=== PATIENT | female | born 1955 | race Caucasian/White ===

== ENCOUNTER 2020-07-11 17:11 | Observation (INO) | payer BC ==
[2020-07-11] MEDS ORDERED: OXYCODONE-ACETAMINOPHEN 5-325 MG TABLET PO ONE (17:16)
--- NOTE | 2020-07-11 17:26 | ER Document Report ---
ED Medical Screen (RME) - General Chief Complaint: Fall Stated Complaint: FALL RIGHT WRIST INJURY Time Seen by Provider: 07/11/20 17:16 Mode of Arrival: Wheelchair Information source: Patient Notes: 64-year-old female presented to ED for right wrist pain and deformity. She states she fell off the second rung of a ladder about 4:00. She had to call her friend who came together and brought her to the hospital from [place]. She does have obvious deformity to the right wrist. When I first brought her into the room she was very lightheaded and felt like she was going to pass out. She states she does have a history of high blood pressure, high cholesterol, and asthma. I have ordered her a right wrist x-ray and Percocet. She has received the Percocet will go for the x-ray. I have a temporarily splinted the arm until she can get her x-rays and get in a room. I have greeted and performed a rapid initial assessment of this patient. A comprehensive ED assessment and evaluation of the patient, analysis of test results and completion of medical decision making process will be conducted by an additional ED providers.
--- NOTE | 2020-07-11 17:43 | ER Document Report ---
ED General - General Chief Complaint: Fall Stated Complaint: FALL RIGHT WRIST INJURY Time Seen by Provider: 07/11/20 17:16 Mode of Arrival: Wheelchair Information source: Patient Notes: 07/11/20 17:16 - ED [facility] [id number] : 1955 Patient Age: 64 pt arrives to Er today for c/o right wrist pain and deformity after falling off a step ladder from 2-3 steps up aprpoximately 4-5 feet. pt fell onto right wrist. pt has positive deformity. pt states she missed a step. pt is alert but slow to respond. respirations even and unlabored. Initialized on 07/11/20 17:16 - END OF NOTE ED Medical Screen (Jocelyn mendiola) - General Chief Complaint: Fall Stated Complaint: FALL RIGHT WRIST INJURY Time Seen by Provider: 07/11/20 17:16 Mode of Arrival: Wheelchair Information source: Patient Notes: 64-year-old female presented to ED for right wrist pain and deformity. She states she fell off the second rung of a ladder about 4:00. She had to call her friend who came together and brought her to the hospital from [place]. She does have obvious deformity to the right wrist. When I first brought her into the room she was very lightheaded and felt like she was going to pass out. She states she does have a history of high blood pressure, high cholesterol, and asthma. I have ordered her a right wrist x-ray and Percocet. She has received the Percocet will go for the x-ray. I have a temporarily splinted the arm until she can get her x-rays and get in a room. my notes 64-year-old female arrives by POV after she was on a stepladder around 1600 today. She tripped and fell to the floor. She is right-handed. She has obvious deformity to her right wrist. X-ray reveals a fractured radius with displacement and a open fracture. Dr. Herbert Hatfield happened to be in the ER at the time I was calling the glue mill operator to locate him. He evaluated the patient by 1740. - Related Data Allergies/Adverse Reactions: erythromycin base Allergy (Verified 07/11/20 17:28) Penicillins Allergy (Verified 07/11/20 17:28) theophylline Allergy (Verified 07/11/20 17:28) emtex Allergy (Uncoded 07/11/20 17:28) Past Medical History - General Information source: Patient - Social History Smoking Status: Never Smoker Chew tobacco use (# tins/day): No Frequency of alcohol use: None Drug Abuse: None Physical Exam - Vital signs Vitals: Temp 98.7 F 07/11/20 17:16 Interpretation: Normal - HEENT Head: Normocephalic, Atraumatic Eyes: Normal Pupils: PERRL Pharynx: Normal Neck: Normal - Respiratory Respiratory status: No respiratory distress Chest status: Nontender Breath sounds: Normal Chest palpation: Normal - Cardiovascular Rhythm: Regular Heart sounds: Normal auscultation Murmur: No Friction rub: No Smiley's crunch: No - Abdominal Inspection: Normal Distension: No distension Bowel sounds: Normal Tenderness: Nontender Organomegaly: No organomegaly - Rectal Hemorrhoids: Other - deferred - Genitourinary Biman[place] exam: Other - deferred - Back Back: Normal - Extremities General upper extremity: Other - Deformity to right wrist with open skin dorsally. Patient has full mobility of her fingers and has good sensation to fingers. Pain to the snuffbox area and ulnar area. General lower extremity: Normal inspection - Neurological Neuro grossly intact: Yes Cognition: Normal Orientation: AAOx4 [place] Coma Scale Eye Opening: Spontaneous Ana Coma Scale Verbal: Oriented Ana Coma Scale Motor: Obeys Commands Ana Coma Scale Total: 15 Speech: Normal Motor strength normal: LUE, RUE, LLE, RLE Sensory: Normal - Psychological Associated symptoms: Anxious - Skin Skin Temperature: Warm Skin Moisture: Dry Course - Vital Signs Vital signs: Temp Pulse Resp BP Pulse Ox 98.3 F 72 18 115/65 97 07/11/20 17:20 07/11/20 17:20 07/11/20 17:20 07/11/20 17:20 07/11/20 17:20 - Laboratory Result Diagrams: 07/11/20 17:42 07/11/20 17:42 - Diagnostic Test Radiology reviewed: Reports reviewed - EKG Interpretation by Me EKG shows normal: Sinus rhythm Rate: Normal Rhythm: NSR - [address] elevation no ST depression no T wave elevation no T wave depression Procedures - Joint Reduction/Fracture Care Right Wrist Time completed: 18:33 Consent obtained: Yes Conscious sedation: Yes Pre-procedure NV exam: Yes Fracture: Open Post-procedure NV exam: Yes Post-reduction x-ray: Joint reduced Reduction attempts: 1 Complications: No Notes: 07/11/20 18:33 This reduction was done by Dr. Herbert Hatfield and I was in room 4 sedation procedure. Patient received propofol 100 IV and ketamine 50 IV. Patient was asleep for procedure. Her saturations were between 96-99. Breathing was respirations between 16-15 Discharge - Discharge Clinical Impression: Wrist fracture, right Qualifiers: Encounter type: initial encounter Fracture type: open Qualified Code(s): S62.101B - Fracture of unspecified carpal bone, right wrist, initial encounter for open fracture Wrist fracture, open Qualifiers: Encounter type: initial encounter Laterality: right Qualified Code(s): S62.101B - Fracture of unspecified carpal bone, right wrist, initial encounter for open fracture Condition: Good Disposition: ADMITTED INPATIENT
[2020-07-11] MEDS ORDERED: ONDANSETRON HCL INJ/PF 4 MG/2 ML SDV IV ONE (17:46)
[2020-07-11] MEDS ORDERED: MORPHINE SULFATE 10 MG/ML INJ IV ONE ×2 (17:46→19:32)
--- NOTE | 2020-07-11 18:01 | RADIOLOGY REPORT (SQ) ---
EXAM DESCRIPTION: WRIST RIGHT 2 VIEWS IMAGES COMPLETED DATE/TIME: 07/11/2020 5:39 pm REASON FOR STUDY: Fall injury deformity COMPARISON: None. NUMBER OF VIEWS: Three views. TECHNIQUE: AP, lateral, and oblique radiographic images acquired of the right wrist. LIMITATIONS: None. FINDINGS: MINERALIZATION: Normal. BONES: Transverse slightly comminuted fracture of the distal radius with complete dorsal displacement of the distal most fragment SOFT TISSUES: No soft tissue swelling. No foreign body. OTHER: No other significant finding. IMPRESSION: Distal radius fracture. TECHNICAL DOCUMENTATION: JOB ID: [id number] [email or web address]- All Rights Reserved Reading location - IP/workstation name: [email or web address]
[2020-07-11] MEDS ORDERED: PROPOFOL INJ 200 MG/20 ML VIAL IV ONE (18:07)
[2020-07-11] MEDS ORDERED: KETAMINE HCL INJ 500 MG/10 ML VIAL IV ONE (18:08)
[2020-07-11 18:09] LABS: ABSOLUTE BASOPHILS # (AUTO) 0.1 10^3/uL (0.0-0.2); ABSOLUTE EOSINOPHILS # (AUTO) 0.3 10^3/uL (0.0-0.6); ABSOLUTE LYMPHOCYTES (AUTO) 3.4 10^3/uL (0.5-4.7); ABSOLUTE NEUT (AUTO) 7.3 10^3/uL (1.7-8.2); BASOPHILS % (AUTO) 1.1 % (0-2); EOSINOPHILS % (AUTO) 2.7 % (0-6); HEMATOCRIT 44.7 % (36.0-47.0); HEMOGLOBIN 15.1 g/dL (12.0-15.5); LYMPHOCYTES % (AUTO) 27.9 % (13-45); MEAN CORPUSCULAR HEMOGLOBIN 33.3 pg (27.0-33.4); MEAN CORPUSCULAR HGB CONC 33.9 g/dL (32.0-36.0); MEAN CORPUSCULAR VOLUME 98 fl (80-97); MONOCYTES % (AUTO) 8.1 % (3-13); PLATELET COUNT 321 10^3/uL (150-450); RED BLOOD COUNT 4.54 10^6/uL (3.72-5.28); RED CELL DISTRIBUTION WIDTH 13.9 % (11.5-14.0); SEGMENTED NEUTROPHILS % (AUTO) 60.2 % (42-78); TOTAL CELLS COUNTED % (AUTO) 100 %; WHITE BLOOD COUNT 12.1 10^3/uL (4.0-10.5)
[2020-07-11] MEDS ORDERED: CEFAZOLIN 1 GM/D5W RTU 1 GM/50 ML RTUPB IV ONE (18:09)
[2020-07-11 18:18] LABS: ALBUMIN 4.7 g/dL (3.5-5.0); ALKALINE PHOSPHATASE 82 U/L (38-126); ANION GAP 7 (5-19); ASPARTATE AMINO TRANSFERASE 40 U/L (14-36); BILIRUBIN,TOTAL 0.4 mg/dL (0.2-1.3); BLOOD UREA NITROGEN 28 mg/dL (7-20); CALCIUM 9.9 mg/dL (8.4-10.2); CARBON DIOXIDE 28 mmol/L (22-30); CHLORIDE 99 mmol/L (98-107); GLUCOSE 111 mg/dL (75-110); POTASSIUM 4.6 mmol/L (3.6-5.0); TOTAL PROTEIN 7.5 g/dL (6.3-8.2)
--- NOTE | 2020-07-11 18:25 | RADIOLOGY REPORT (SQ) ---
EXAM DESCRIPTION: CHEST SINGLE VIEW IMAGES COMPLETED DATE/TIME: 07/11/2020 6:08 pm REASON FOR STUDY: fx wrist COMPARISON: None. EXAM PARAMETERS: NUMBER OF VIEWS: One view. TECHNIQUE: Single frontal radiographic view of the chest acquired. RADIATION DOSE: NA LIMITATIONS: None. FINDINGS: LUNGS AND PLEURA: No opacities, masses or pneumothorax. No pleural effusion. MEDIASTINUM AND HILAR STRUCTURES: No masses. Contour normal. HEART AND VASCULAR STRUCTURES: Heart normal in size. Normal vasculature. BONES: No acute findings. HARDWARE: None in the chest. OTHER: No other significant finding. IMPRESSION: NO ACUTE RADIOGRAPHIC FINDING IN THE CHEST. TECHNICAL DOCUMENTATION: JOB ID: [id number] 2010 [email or web address]- All Rights Reserved Reading location - IP/workstation name: [email or web address]
--- NOTE | 2020-07-11 18:31 | PDOC CONSULTATION ---
Consultation Consult Date: 07/11/20 Attending physician:: SIS CHAVEZ JR Provider Consulted: CHARO BUENO Consult reason:: Medical clearance History of Present Illness Patient complains of: Fall with right wrist pain History of Present Illness: PHOEBE JENKINS is a 64 year old female with history of hypertension, hyperlipidemia, asthma came to the emergency room with complaints of fall from a stepladder. In the emergency room found to have a right wrist fracture specifically fracture of the distal radius with the displacement and open fracture. Dr. Chavez is planning to take her to the OR tomorrow morning requested for medical clearance. EKG within normal limits chemistry is normal CBC is pending at the time of my examination. Past Medical History Cardiac Medical History: Reports: Hyperlipidema, Hypertension Pulmonary Medical History: Reports: Asthma EENT Medical History: Reports: None Neurological Medical History: Reports: None Renal/ Medical History: Reports: None Malignancy Medical History: Reports: None GI Medical History: Reports: None Musculoskeltal Medical History: Reports: None Psychiatric Medical History: Reports: None Traumatic Medical History: Reports: None Hematology: Reports: None Infectious Medical History: Reports: None Past Surgical History Past Surgical History: Reports: Tonsillectomy Social History Information Source: Patient Lives with: Friend Smoking Status: Never Smoker Electronic Cigarette use?: No Hx Recreational Drug Use: No Hx Prescription Drug Abuse: No - Advance Directive Resuscitation Status: Full Code Family History Parental Family History Reviewed: Yes Children Family History Reviewed: Yes Sibling(s) Family History Reviewed.: Yes Medication/Allergy Allergies/Adverse Reactions: erythromycin base Allergy (Verified 07/11/20 17:28) Penicillins Allergy (Verified 07/11/20 17:28) theophylline Allergy (Verified 07/11/20 17:28) emtex Allergy (Uncoded 07/11/20 17:28) Review of Systems Constitutional: ABSENT: fatigue, fever(s), headache(s), night sweats, weakness Eyes: ABSENT: visual disturbances Ears: ABSENT: hearing changes Nose, Mouth, and Throat: ABSENT: sore throat Cardiovascular: ABSENT: orthropnea, palpitations Respiratory: ABSENT: dyspnea, hemoptysis Gastrointestinal: ABSENT: coffee ground emesis, diarrhea, dysphagia, heartburn Genitourinary: ABSENT: dysuria, hematuria Musculoskeletal: PRESENT: deformity, other - Fall with right distal fracture with displacement and it is open fracture. Neurological: ABSENT: abnormal speech, focal weakness, frequent falls Psychiatric: ABSENT: hallucinations, homidical ideation, suicidal ideation Endocrine: ABSENT: heat intolerance, menstrual abnormalities, polydipsia Hematologic/Lymphatic: ABSENT: easy bruising, lymphadenopathy Physical Exam Vital Signs: Temp Pulse Resp BP Pulse Ox 98.3 F 72 18 115/65 97 07/11/20 17:20 07/11/20 17:20 07/11/20 17:20 07/11/20 17:20 07/11/20 17:20 Intake & Output 07/10/20 07/11/20 07/12/20 06:59 06:59 06:59 Weight 98.883 kg General appearance: PRESENT: cooperative, other - In moderate distress Head exam: PRESENT: atraumatic Eye exam: PRESENT: PERRLA Ear exam: PRESENT: normal external ear exam Mouth exam: PRESENT: neck supple Teeth exam: PRESENT: poor dentation Neck exam: ABSENT: carotid bruit, JVD, lymphadenopathy, thyromegaly Respiratory exam: PRESENT: decreased breath sounds Cardiovascular exam: PRESENT: RRR. ABSENT: diastolic murmur, rubs, systolic murmur Pulses: PRESENT: normal dorsalis pedis pul GI/Abdominal exam: PRESENT: normal bowel sounds, soft. ABSENT: distended, guarding, mass, organolmegaly, rebound, tenderness Rectal exam: PRESENT: deferred Extremities exam: PRESENT: other - Examination of the right arm shows right wrist fracture which is open fracture. Neurological exam: PRESENT: alert, awake, oriented to person, oriented to place, oriented to time, oriented to situation, CN II-XII grossly intact. ABSENT: motor sensory deficit Psychiatric exam: PRESENT: anxious Results Laboratory Results: 07/11/20 17:42 07/11/20 17:42 Sodium 133.6 L Potassium 4.6 Chloride 99 Carbon Dioxide 28 Anion Gap 7 BUN 28 H Creatinine 0.96 Est GFR ( Amer) > 60 Glucose 111 H Calcium 9.9 Total Bilirubin 0.4 AST 40 H Alkaline Phosphatase 82 Total Protein 7.5 Albumin 4.7 Impressions: Wrist X-Ray 07/11/20 17:17 IMPRESSION: Distal radius fracture. Assessment and Plan - Diagnosis (1) Wrist fracture, right Qualifiers: Encounter type: initial encounter Fracture type: open Qualified Code(s): S62.101B - Fracture of unspecified carpal bone, right wrist, initial encounter for open fracture Is this a current diagnosis for this admission?: Yes Plan: 07/11/2020-patient is going to be admitted by Dr. Chavez to the medical floor with distal right foot fracture is planning to do the open reduction today possible surgery tomorrow. CBC is pending and chemistry within normal limits EKG within normal limits. Medically cleared with low risk. (2) HTN (hypertension) Is this a current diagnosis for this admission?: No Plan: 07/11/2020-patient has history of essential hypertension to start the patient on IV hydralazine 10 mg every 6 as needed for systolic blood pressure more than 170. Patient will be kept n.p.o. DVT prophylaxis with SCDs will be provided. No pharmacal prophylaxis because of the possible surgery tomorrow. (3) Obesity (BMI 30-39.9) Is this a current diagnosis for this admission?: No Plan: 07/11/2020-patient BMI is 36.3 diet exercise weight loss lifestyle modifications discussed with the patient. - Time Anticipated Discharge Disposition: Home, Self Care Anticipated Discharge Timeframe: within 72 hours
[2020-07-11] MEDS ORDERED: HYDRALAZINE HCL INJ/PF 20 MG/1 ML SDV IV PRN (18:32)
[2020-07-11] MEDS ORDERED: ONDANSETRON HCL INJ/PF 4 MG/2 ML SDV IV PRN (18:33)
[2020-07-11 18:54] LABS: INTERNATIONAL RATION (INR) 0.93; PROTHROMBIN TIME 12.6 SEC (11.4-15.4)
[2020-07-11] MEDS ORDERED: ACETAMINOPHEN 325 MG TABLET PO PRN (19:18)
--- NOTE | 2020-07-11 19:39 | Progress Note ---
Provider Note Provider Note: Procedure note: Discussed risk and benefits of multiple treatment options. Informed procedural consent was obtained for closed reduction under conscious sedation. The wound was cleaned and a sterile dressing was placed. After adequate sedation was provided, a reduction maneuver was performed and the patient was placed in a sugartong splint. She tolerated the procedure well. She maintained NVI afterward.
[2020-07-11] MEDS ORDERED: CEFAZOLIN 2 GM/D5W RTU 2 GM/50 ML RTUPB IV SCH (22:00)
[2020-07-11] MEDS: MORPHINE SULFATE 10 MG/ML INJ IV PRN (22:05)
[2020-07-11] MEDS: CEFAZOLIN SODIUM 2 GM in DEXTROSE 5%-WATER 100 ML IV SCH (22:37)
[2020-07-12] MEDS: MORPHINE SULFATE 10 MG/ML INJ IV PRN (02:05)
[2020-07-12] MEDS: CEFAZOLIN SODIUM 2 GM in DEXTROSE 5%-WATER 100 ML IV SCH ×2 (05:45→13:01)
[2020-07-12 07:15] LABS: ABSOLUTE BASOPHILS # (AUTO) 0.1 10^3/uL (0.0-0.2); ABSOLUTE EOSINOPHILS # (AUTO) 0.1 10^3/uL (0.0-0.6); ABSOLUTE MONOCYTES (AUTO) 1.2 10^3/uL (0.1-1.4); ABSOLUTE NEUT (AUTO) 7.3 10^3/uL (1.7-8.2); BASOPHILS % (AUTO) 0.9 % (0-2); EOSINOPHILS % (AUTO) 1.1 % (0-6); HEMATOCRIT 41.4 % (36.0-47.0); HEMOGLOBIN 14.1 g/dL (12.0-15.5); LYMPHOCYTES % (AUTO) 25.6 % (13-45); MEAN CORPUSCULAR HEMOGLOBIN 33.3 pg (27.0-33.4); MEAN CORPUSCULAR VOLUME 98 fl (80-97); MONOCYTES % (AUTO) 10.4 % (3-13); PLATELET COUNT 284 10^3/uL (150-450); RED BLOOD COUNT 4.23 10^6/uL (3.72-5.28); RED CELL DISTRIBUTION WIDTH 13.4 % (11.5-14.0); TOTAL CELLS COUNTED % (AUTO) 100 %; WHITE BLOOD COUNT 11.7 10^3/uL (4.0-10.5)
[2020-07-12 07:35] LABS: ALBUMIN 4.2 g/dL (3.5-5.0); ALKALINE PHOSPHATASE 70 U/L (38-126); ANION GAP 5 (5-19); ASPARTATE AMINO TRANSFERASE 40 U/L (14-36); BILIRUBIN,TOTAL 0.4 mg/dL (0.2-1.3); BLOOD UREA NITROGEN 20 mg/dL (7-20); CALCIUM 9.4 mg/dL (8.4-10.2); CARBON DIOXIDE 27 mmol/L (22-30); CHLORIDE 103 mmol/L (98-107); GLUCOSE 102 mg/dL (75-110); POTASSIUM 4.4 mmol/L (3.6-5.0); TOTAL PROTEIN 6.8 g/dL (6.3-8.2)
[2020-07-12] MEDS ORDERED: ALBUTEROL SULFATE 0.083% NEB 2.5 MG/3 ML AMPUL NEB ONE (08:15)
[2020-07-12] MEDS ORDERED: FENTANYL CITRATE INJ/PF 100 MCG/2 ML AMPUL ONE (08:17)
[2020-07-12] MEDS ORDERED: LIDOCAINE 2% INJ-PF (100 MG/5 ML) SYRINGE ONE (08:17)
[2020-07-12] MEDS ORDERED: ONDANSETRON HCL INJ/PF 4 MG/2 ML SDV ONE (08:18)
[2020-07-12] MEDS ORDERED: PROPOFOL INJ 200 MG/20 ML VIAL IV ONE (08:18)
[2020-07-12] MEDS ORDERED: DEXAMETHASONE SOD PHOSPHATE INJ 4 MG/1 ML VIAL ONE (08:18)
[2020-07-12] MEDS ORDERED: MIDAZOLAM 2 MG/2 ML INJ ONE (08:18)
[2020-07-12] MEDS ORDERED: HYDROMORPHONE HCL INJ/PF 2 MG/ML AMPULE ONE (08:18)
--- NOTE | 2020-07-12 08:20 | EKG REPORT ---
SEVERITY:- BORDERLINE ECG - SINUS RHYTHM BORDERLINE T WAVE ABNORMALITIES : Confirmed by: Cedrcik Rizvi MD 12-Jul-2020 08:18:59
[2020-07-12] MEDS ORDERED: BUPIVACAINE HCL 0.25 % INJ/PF (2.5 MG/1 ML) 30 ML VIAL ONE (09:00)
[2020-07-12] MEDS ORDERED: OXYCODONE-ACETAMINOPHEN 5-325 MG TABLET PO PRN ×2 (09:01)
[2020-07-12] MEDS ORDERED: FENTANYL CITRATE INJ/PF 100 MCG/2 ML AMPUL IV PRN ×3 (09:01)
[2020-07-12] MEDS ORDERED: MEPERIDINE HCL/PF INJ 25 MG/1 ML DISP.SYRIN IV PRN (09:01)
[2020-07-12] MEDS ORDERED: MORPHINE SULFATE 10 MG/ML INJ IV PRN (09:01)
[2020-07-12] MEDS ORDERED: PROMETHAZINE HCL INJ 25 MG/1 ML VIAL IV PRN ×2 (09:01)
[2020-07-12] MEDS ORDERED: DIPHENHYDRAMINE HCL 50 MG/ML VIAL IV PRN (09:01)
[2020-07-12] MEDS ORDERED: LIDOCAINE 1% INJ-PF (10 MG/ML) 30 ML SDV ONE (09:03)
[2020-07-12] MEDS ORDERED: LABETALOL HCL INJ 20 MG/4 ML DISP.SYRIN IV ONE (10:00)
[2020-07-12] MEDS ORDERED: DOCUSATE SODIUM 100 MG CAPSULE PO SCH (10:00)
[2020-07-12] MEDS ORDERED: PANTOPRAZOLE SODIUM 40 MG VIAL IV SCH (10:00)
--- NOTE | 2020-07-12 10:20 | PDOC PROGRESS REPORT ---
Subjective Progress Note for:: 07/12/20 Subjective:: Patient seen and evaluated this morning. No no events overnight. Patient reports no symptomatic changes, has some numbness in the ulnar digits as was present yesterday however still grossly neurovascular intact. Reason For Visit: OPEN DISTAL RADIUS FRACTURE,RIGHT Physical Exam Vital Signs: Temp Pulse Resp BP Pulse Ox 98.0 F 86 17 105/86 H 96 07/12/20 07:48 07/12/20 07:48 07/12/20 07:48 07/12/20 07:48 07/12/20 07:48 Intake & Output 07/11/20 07/12/20 07/13/20 06:59 06:59 06:59 Intake Total 390 100 Balance 390 100 Weight 100.9 kg Physical Exam: No acute distress, alert and orient x3 Right upper extremity sensation grossly intact to radial median and ulnar nerve. upper extremity motor function grossly intact to radian median ulnar nerve AIN and PIN Pulses 2+, capillary refill less than 2 seconds Right upper extremity currently placed in a sugar tong splint, clean dry and intact -Some slight paresthesia to ulnar nerve distribution upon palpation Results Laboratory Results: 07/12/20 07:00 07/12/20 07:00 07/11/20 07/11/20 07/12/20 17:42 17:42 07:00 WBC 12.1 H RBC 4.54 Hgb 15.1 Hct 44.7 MCV 98 H MCH 33.3 MCHC 33.9 RDW 13.9 Plt Count 321 Seg Neutrophils % 60.2 Sodium 133.6 L 134.9 L Potassium 4.6 4.4 Chloride 99 103 Carbon Dioxide 28 27 Anion Gap 7 5 BUN 28 H 20 Creatinine 0.96 0.90 Est GFR ( Amer) > 60 > 60 Glucose 111 H 102 Calcium 9.9 9.4 Magnesium 2.3 Total Bilirubin 0.4 0.4 AST 40 H 40 H Alkaline Phosphatase 82 70 Total Protein 7.5 6.8 Albumin 4.7 4.2 07/12/20 07:00 WBC 11.7 H RBC 4.23 Hgb 14.1 Hct 41.4 MCV 98 H MCH 33.3 MCHC 34.0 RDW 13.4 Plt Count 284 Seg Neutrophils % 62.0 Sodium Potassium Chloride Carbon Dioxide Anion Gap BUN Creatinine Est GFR ( Amer) Glucose Calcium Magnesium Total Bilirubin AST Alkaline Phosphatase Total Protein Albumin Impressions: Chest X-Ray 07/11/20 17:48 IMPRESSION: NO ACUTE RADIOGRAPHIC FINDING IN THE CHEST. Assessment & Plan - Diagnosis (1) Open fracture of right distal radius Is this a current diagnosis for this admission?: Yes Plan: -Patient was temporized in the ER yesterday. -Plan for operative I&D with open reduction internal fixation this morning. -Continue antibiotics as previously prescribed -Keep n.p.o. prior to surgery. - Time Time Spent with patient: Less than 15 minutes
--- NOTE | 2020-07-12 10:28 | Operative Report ---
Operative Report DATE OF SURGERY: 07/12/20 PREOPERATIVE DIAGNOSIS: Right distal radius fracture, open, intra-articular POSTOPERATIVE DIAGNOSIS: Open right intra-articular distal radius fracture OPERATION: Right distal radius open reduction internal fixation, wound explora tion with vision and debridement SURGEON: SIS CHAVEZ JR ANESTHESIA: GA COMPLICATIONS: None PROCEDURE: Patient was brought to the operating suite laid supine on the operating table. Patient was placed under general anesthesia. 2 g Ancef were provided near the time of surgery as per her ongoing protocol for open fracture. The right extremity was prepped and draped in standard sterile fashion. An appropriate timeout was performed, followed by exsanguination of the right upper extremity with an Esmarch and inflation of the tourniquet 250 mmhg. The wrist underwent a reduction maneuver assisted by fluoroscopy. A K wire was placed in the radial styloid in order to hold provisional fixation. Incision was made to the volar radius and a volar FCR approach was performed. Care was taken to avoid injuring any superficial nerve branches. Small bleeders were cauterized with bipolar to obtain hemostatic control. The pronator quadratus was reflected off of the volar surface of the distal radius, it had been perforated from the injury. After adequate exposure a distal radius locking plate was chosen and under fluoroscopic guidance positioned in ideal location on both AP and lateral views at the distal fragment. This was held with a K wire, followed by a nonlocking screw to bring the plate to the bone. The distal row screws were then filled with locking screws. After this we further reduced the fracture using the assistance of the plate. We then drilled the oblong hole followed by application of a nonlocking screw. Again fluoroscopy was used to ensure appropriate reduction. The remaining screws were then placed. All screws were tightened and checked under fluoroscopy to ensure no posterior cortical perforation. At this point we thoroughly irrigated the wound with dilute Betadine solution. We turned our attention to the open wound on the ulnar aspect. An incision was made to extend the wound and to explore for any potential debris. Upon finding none we then thoroughly irrigated this wound with sterile saline solution and dilute Betadine solution. Tourniquet was deflated to check for bleeders which were all cauterized with bipolar cautery. After this a 3-0 nylon was used to close the ulnar-sided wound. The tourniquet was deflated and we closed the volar radius wound with subcutaneous 3-0 Monocryl in inverted interrupted fashion followed by a 3-0 nylon horizontal mattress running suture. A sterile dressing was then placed followed by a volar splint. The patient was then awakened from anesthesia and transferred the PACU in stable condition.
[2020-07-12] MEDS ORDERED: OXYCODONE HCL IR 5 MG TABLET PO PRN (10:30)
--- NOTE | 2020-07-12 13:26 | PDOC PROGRESS REPORT ---
Subjective Progress Note for:: 07/12/20 Subjective:: 64 year old female with history of hypertension, hyperlipidemia, asthma came to the emergency room with complaints of fall from a stepladder. In the emergency room found to have a right wrist fracture specifically fracture of the distal radius with the displacement and open fracture. Dr. Hatfield is planning to take her to the OR tomorrow morning requested for medical clearance. EKG within normal limits chemistry is normal CBC is pending at the time of my examination. 07/12/2020-patient went for surgery for a right distal radius fracture which is open and intra-articular. She had open reduction and internal fixation done. Patient is still complaining of pain and soreness in the right arm. Plan is to continue IV pain medications. Reason For Visit: OPEN DISTAL RADIUS FRACTURE,RIGHT Physical Exam Vital Signs: Temp Pulse Resp BP Pulse Ox 98.0 F 77 19 132/81 H 97 07/12/20 11:56 07/12/20 11:56 07/12/20 11:56 07/12/20 11:56 07/12/20 11:56 Intake & Output 07/11/20 07/12/20 07/13/20 06:59 06:59 06:59 Intake Total 390 1000 Output Total 25 Balance 390 975 Weight 100.9 kg General appearance: PRESENT: mild distress, obese Head exam: PRESENT: atraumatic Eye exam: PRESENT: PERRLA Mouth exam: PRESENT: moist, tongue midline Teeth exam: PRESENT: poor dentation Neck exam: ABSENT: carotid bruit, JVD, lymphadenopathy, thyromegaly Respiratory exam: PRESENT: clear to auscultation sandra. ABSENT: rales, rhonchi, wheezes Cardiovascular exam: PRESENT: RRR. ABSENT: diastolic murmur, rubs, systolic murmur GI/Abdominal exam: PRESENT: normal bowel sounds, soft. ABSENT: distended, guarding, mass, organolmegaly, rebound, tenderness Rectal exam: PRESENT: deferred Extremities exam: PRESENT: other - Right arm including hand with a splint. Neurological exam: PRESENT: alert, awake, oriented to person, oriented to place, oriented to time, oriented to situation, CN II-XII grossly intact. ABSENT: motor sensory deficit Psychiatric exam: PRESENT: appropriate affect, normal mood. ABSENT: homicidal ideation, suicidal ideation Results Laboratory Results: 07/12/20 07:00 07/12/20 07:00 07/11/20 07/11/20 07/12/20 17:42 17:42 07:00 WBC 12.1 H RBC 4.54 Hgb 15.1 Hct 44.7 MCV 98 H MCH 33.3 MCHC 33.9 RDW 13.9 Plt Count 321 Seg Neutrophils % 60.2 Sodium 133.6 L 134.9 L Potassium 4.6 4.4 Chloride 99 103 Carbon Dioxide 28 27 Anion Gap 7 5 BUN 28 H 20 Creatinine 0.96 0.90 Est GFR ( Amer) > 60 > 60 Glucose 111 H 102 Calcium 9.9 9.4 Magnesium 2.3 Total Bilirubin 0.4 0.4 AST 40 H 40 H Alkaline Phosphatase 82 70 Total Protein 7.5 6.8 Albumin 4.7 4.2 07/12/20 07:00 WBC 11.7 H RBC 4.23 Hgb 14.1 Hct 41.4 MCV 98 H MCH 33.3 MCHC 34.0 RDW 13.4 Plt Count 284 Seg Neutrophils % 62.0 Sodium Potassium Chloride Carbon Dioxide Anion Gap BUN Creatinine Est GFR ( Amer) Glucose Calcium Magnesium Total Bilirubin AST Alkaline Phosphatase Total Protein Albumin Impressions: Chest X-Ray 07/11/20 17:48 IMPRESSION: NO ACUTE RADIOGRAPHIC FINDING IN THE CHEST. Assessment and Plan - Diagnosis (1) HTN (hypertension) Is this a current diagnosis for this admission?: No Plan: 07/11/2020-patient has history of essential hypertension to start the patient on IV hydralazine 10 mg every 6 as needed for systolic blood pressure more than 170. Patient will be kept n.p.o. DVT prophylaxis with SCDs will be provided. No pharmacal prophylaxis because of the possible surgery tomorrow. 07/12/2020-blood pressure is stable. It is 110/80 this morning. Patient can resume p.o. medications. (2) Obesity (BMI 30-39.9) Is this a current diagnosis for this admission?: No (3) Open fracture of right distal radius Is this a current diagnosis for this admission?: Yes Plan: 07/11/2020-patient is going to be admitted by Dr. Hatfield to the medical floor with distal right foot fracture is planning to do the open reduction today possible surgery tomorrow. CBC is pending and chemistry within normal limits EKG within normal limits. Medically cleared with low risk. 07/12/2020-patient went for open reduction internal fixation of distal radius fracture. Doing well. To sign off from hospitalist services. - Time Anticipated Discharge Disposition: Home, Self Care Anticipated Discharge Timeframe: within 24 hours
--- NOTE | 2020-07-12 13:59 | RADIOLOGY REPORT (SQ) ---
EXAM DESCRIPTION: WRIST RIGHT 3 VIEWS IMAGES COMPLETED DATE/TIME: 07/11/2020 07/12/2020 1:50 pm REASON FOR STUDY: POST OP COMPARISON: None. NUMBER OF VIEWS: Three views. TECHNIQUE: AP, lateral, and oblique radiographic images acquired of the right wrist. LIMITATIONS: Overlying splinting material obscures fine osseous detail. FINDINGS: MINERALIZATION: Normal. BONES: The patient is status post open reduction, internal fixation of a previously demonstrated dist al radial fracture. The fracture fragments are reduced to near anatomic alignment. There is no evid ence of hardware fracture or perihardware lucency. Osseous mineralization and alignment are otherwis e normal. SOFT TISSUES: Circumferential soft tissue swelling and few scattered osseous fragments are not an une xpected finding in the posttraumatic/postsurgical setting. OTHER: No other significant finding. IMPRESSION: Status post ORIF of a distal radial fracture without evidence of complication. TECHNICAL DOCUMENTATION: JOB ID: [id number] 2010 [employer]- All Rights Reserved Reading location - IP/workstation name: [email or web address]
[2020-07-12] MEDS ORDERED: CLINDAMYCIN HCL 150 MG CAPSULE PO SCH (14:00)
[2020-07-12 17:22] VITALS: BP 130/62
--- NOTE | 2020-07-12 18:06 | RADIOLOGY REPORT (SQ) ---
EXAM DESCRIPTION: WRIST RIGHT 2 VIEWS; NO CHG FLUORO IMAGES COMPLETED DATE/TIME: 07/12/2020 10:14 am REASON FOR STUDY: RIGHT WRIST ORIF COMPARISON: None. FLUOROSCOPY TIME: 24 seconds 3 images saved to PACS. TECHNIQUE: Intra-operative images acquired during surgical procedure to evaluate progress. NUMBER OF IMAGES: 3 LIMITATIONS: None. FINDINGS: Internal fixation distal radial fracture plate and screw device IMPRESSION: IMAGE(S) OBTAINED DURING PROCEDURE. COMMENT: Quality ID [id number]: Final reports for procedures using fluoroscopy that document radiation exp osure indices, or exposure time and number of fluorographic images (if radiation exposure indices are not available) Please consult full operative report of the attending physician for description of the procedure. TECHNICAL DOCUMENTATION: JOB ID: [id number] 2010 [employer]- All Rights Reserved Reading location - IP/workstation name: [email or web address]
--- NOTE | 2020-07-12 18:06 | RADIOLOGY REPORT (SQ) ---
EXAM DESCRIPTION: WRIST RIGHT 2 VIEWS; NO CHG FLUORO IMAGES COMPLETED DATE/TIME: 07/12/2020 10:14 am REASON FOR STUDY: RIGHT WRIST ORIF COMPARISON: None. FLUOROSCOPY TIME: 24 seconds 3 images saved to PACS. TECHNIQUE: Intra-operative images acquired during surgical procedure to evaluate progress. NUMBER OF IMAGES: 3 LIMITATIONS: None. FINDINGS: Internal fixation distal radial fracture plate and screw device IMPRESSION: IMAGE(S) OBTAINED DURING PROCEDURE. COMMENT: Quality ID [id number]: Final reports for procedures using fluoroscopy that document radiation exp osure indices, or exposure time and number of fluorographic images (if radiation exposure indices are not available) Please consult full operative report of the attending physician for description of the procedure. TECHNICAL DOCUMENTATION: JOB ID: [id number] 2010 [employer]- All Rights Reserved Reading location - IP/workstation name: [email or web address]
[2020-07-12] MEDS ORDERED: CEPHALEXIN 500 MG CAPSULE PO SCH (22:00)
--- NOTE | 2020-07-17 08:01 | PDOC H&P ---
History of Present Illness Admission Date/PCP: 07/11/20 19:53 History of Present Illness: PHOEBE JENKINS is a 64 year old female who presents after a fall at home from a stepladder. She was found to have an open distal radius fracture in the emergency department. I was called in for further evaluation. She denies any other associated injury, denies head injury, denies presyncopal symptoms denies current numbness tingling in the right upper extremity or loss of motor function. Pain is aching in nature, 8 out of 10, associated with swelling, improved with rest, worse with any attempted range of motion. Past Medical History Cardiac Medical History: Reports: Hyperlipidema, Hypertension Pulmonary Medical History: Reports: Asthma EENT Medical History: Reports: None Neurological Medical History: Reports: None Renal/ Medical History: Reports: None Malignancy Medical History: Reports: None GI Medical History: Reports: None Musculoskeltal Medical History: Reports: None Psychiatric Medical History: Reports: None Denies: Depression Traumatic Medical History: Reports: None Hematology: Reports: None Infectious Medical History: Reports: None Past Surgical History Past Surgical History: Reports: Tonsillectomy Social History Lives with: Friend Smoking Status: Never Smoker Electronic Cigarette use?: No Frequency of Alcohol Use: Occasional Hx Recreational Drug Use: No Hx Prescription Drug Abuse: No - Advance Directive Resuscitation Status: Full Code Family History Parental Family History Reviewed: No Children Family History Reviewed: NA Sibling(s) Family History Reviewed.: NA Medication/Allergy Home Medications: Acetaminophen [Tylenol 325 mg Tablet] 975 mg PO Q8HP PRN #60 tablet 07/12/20 Clindamycin HCl [Cleocin 150 mg Capsule] 600 mg PO Q8 7 Days capsule 07/12/20 Docusate Sodium [Colace 100 mg Capsule] 100 mg PO DAILY capsule 07/12/20 Oxycodone HCl [Oxy-Ir 5 mg Tablet] 5 mg PO Q6HP PRN #30 tablet 07/12/20 Allergies/Adverse Reactions: erythromycin base Allergy (Verified 07/11/20 17:28) Penicillins Allergy (Verified 07/11/20 17:28) theophylline Allergy (Verified 07/11/20 17:28) emtex Allergy (Uncoded 07/11/20 17:28) Review of Systems Review of Systems: Constitutional: ABSENT: anorexia, chills, night sweats Cardiovascular: ABSENT: chest pain Respiratory: ABSENT: dyspnea Gastrointestinal: ABSENT: vomiting Genitourinary: ABSENT: dysuria Integumentary: ABSENT: rash Neurological: ABSENT: confusion, memory loss, numbness Psychiatric: ABSENT: hallucinations Hematologic/Lymphatic: ABSENT: easy bleeding Physical Exam Vital Signs: Temp Pulse Resp BP Pulse Ox 98.1 F 84 18 130/62 H 94 07/12/20 17:20 07/12/20 17:20 07/12/20 17:20 07/12/20 17:20 07/12/20 17:20 Physical Exam: General appearance: PRESENT: no acute distress, cooperative, obese Head exam: PRESENT: atraumatic, normocephalic Eye exam: PRESENT: EOMI Ear exam: PRESENT: normal external ear exam Mouth exam: PRESENT: neck supple Neck exam: ABSENT: tracheal deviation Respiratory exam: PRESENT: symmetrical, unlabored. ABSENT: accessory muscle use, wheezes Pulses: PRESENT: normal radial pulses, normal dorsalis pedis pulse Vascular exam: PRESENT: normal capillary refill GI/Abdominal exam: ABSENT: distended, firm Extremities exam: PRESENT: full ROM of bilateral shoulders, elbows wrists, knees, hips and ankles without pain Musculoskeletal exam: PRESENT: full ROM, normal inspection of all 4 extremities aside from that noted below. Neurological exam: PRESENT: alert, awake, oriented to person, oriented to place, oriented to time Psychiatric exam: PRESENT: appropriate affect. ABSENT: agitated Focused psych exam: ABSENT: catatonic Skin exam: PRESENT: intact. ABSENT: dry All as above aside from that noted in the HPI and the following: Right upper extremity sensation grossly intact to radial median and ulnar nerve. upper extremity motor function grossly intact to radian median ulnar nerve AIN and PIN Pulses 2+, capillary refill less than 2 seconds No deformity noted full range of motion of the elbow shoulder wrist and fingers without pain Compartments soft, no tenderness to palpation Small ulnar-sided laceration with exposed subcutaneous fat, no gross contamination. Results Laboratory Results: 07/12/20 07:00 07/12/20 07:00 Impressions: Chest X-Ray 07/11/20 17:48 IMPRESSION: NO ACUTE RADIOGRAPHIC FINDING IN THE CHEST. Fluoroscopy 07/12/20 00:00 IMPRESSION: IMAGE(S) OBTAINED DURING PROCEDURE. Wrist X-Ray 07/12/20 00:00 IMPRESSION: IMAGE(S) OBTAINED DURING PROCEDURE. Assessment & Plan - Diagnosis (1) Open fracture of right distal radius Is this a current diagnosis for this admission?: Yes Plan: -The patient was evaluated and treated for potential tetanus exposure in the emergency department as well as provided with an acute dose of Ancef. -The right upper extremity was provisionally cleaned and reduced under conscious sedation and placed in a well molded splint. See procedure note Plan will be for operating tomorrow, keep n.p.o. - Time Anticipated Discharge Disposition: Home, Self Care Anticipated Discharge Timeframe: within 48 hours
--- NOTE | 2020-07-17 10:07 | Discharge Summary ---
Discharge Summary (SDC) - Discharge Final Diagnosis: Open right distal radius fracture Date of Surgery: 07/12/20 Discharge Date: 07/12/20 Condition: Good Forms: Discharge POC-Adult Treatment or Instructions: Keep the right upper extremity clean dry and intact. Leave in place until seen in my office No lifting more than dinner or utensils. Take vitamin C 500 twice daily for 6 weeks to protect against potential nerve damage or complex regional pain syndrome Follow-up in my office in 10 days. Call the office for an appointment, , [facility] surgery, [address], [place] [address] Prescriptions: Clindamycin HCl [Cleocin 150 mg Capsule] 600 mg PO Q8 7 Days capsule Oxycodone HCl [Oxy-Ir 5 mg Tablet] 5 mg PO Q6HP PRN #30 tablet PRN Reason: Pain Scale Of 4 Acetaminophen [Tylenol 325 mg Tablet] 975 mg PO Q8HP PRN #60 tablet PRN Reason: Pain Scale Of 1 Referrals: SIS CHAVEZ JR, DO [ACTIVE PROVISIONAL STAFF] - Discharge Diet: As Tolerated Respiratory Treatments at Home: Deep Breathing/Coughing Discharge Activity: Activity As Tolerated, No Driving, No Lifting/Push/Pulling Home Care Assistance: Home Health Report the Following to Your Physician Immediately: Shortness of Breath, Increase in Pain, Fever over 101 Degrees, Unusual Bleeding, Drainage-Yellow, Drainage-Beck, Drainage-Green, Drainage-Foul Smelling, IV Site Infection Signs Other Items to Report to MD: Follow at [facility] in 10 days. Call to make an appoint
== END 2020-07-12 18:06 | disposition home health service (06) ==
LOC: ER 17:11 → EH 19:53 → 4S 21:26
PROVIDERS: ADMIT Orthopaedic Surgery; ATTEND Orthopaedic Surgery
DX: S52.571B Other intraarticular fracture of lower end of right radius, initial encounter for open fracture type I or II (principal); W11.XXXA Fall on and from ladder, initial encounter; Z03.818 Encounter for observation for suspected exposure to other biological agents ruled out; I10 Essential (primary) hypertension; E66.9 Obesity, unspecified; F32.9 Major depressive disorder, single episode, unspecified; Z68.36 Body mass index [BMI] 36.0-36.9, adult
CPT/HCPCS: 93005; 96376; 99285; 96375; 96365; 36415 ×2; 83735; 85025 ×2; 85610; 87635; 80053 ×2; 71045; 73100 ×2; 73110; 93010; 01830; 25608; G0378 ×3; C1713 ×8; J2250; J0690 ×3; J1100; J3010; J3490 ×3; J2001; J2270 ×2; J1170; J2405 ×2; J7060 ×2; J2704 ×2; C9803